=== PATIENT | female | born 1975 ===

== ENCOUNTER 2023-02-28 09:35 | Outpatient (REF) | payer OTHER, SELFPAY ==
--- NOTE | 2023-02-28 10:45 | CRLHL7_ITS ---
For Patients: As a result of the Cures Act, medical imaging exams and procedure reports are released immediately into your electronic medical record. You may view this report before your referring provider. If you have questions, please contact your health care provider. BILATERAL SCREENING MAMMOGRAM WITH COMPUTER-AIDED DETECTION AND TOMOSYNTHESIS TECHNIQUE: CC and MLO views were obtained. These mammographic images have been obtained using full-field digital technique. These mammographic images were interpreted with the benefit of computer-aided detection. Breast Tomosynthesis was used in this interpretation. COMPARISON FILM: 12/31/21, 12/19/20. FINDINGS: The breasts are heterogeneously dense, which may obscure small masses IMPRESSION: There is no radiographic evidence for malignancy. ASSESSMENT: BI-RADS Category 2: Benign RECOMMENDATION: Routine screening mammogram in 1 year. A lay language report of this examination will be provided to the patient. Alejandro Ashley M.D. Diagnostic Radiologist [email or web address] Transcribed: 5:06 p.[email or web address] [email or web address]/Dictated by: Alejandro Ashley MD @ 03/05/2023 10:09:00 AM (Electronically Signed)
== END 2023-02-28 09:36 | disposition home or self-care (01) ==
LOC: MAMMO 09:35
PROVIDERS: PCP Physician Assistant Medical; Visit Provider Physician Assistant Medical
DX: Z12.31 Encounter for screening mammogram for malignant neoplasm of breast (principal); R92.2 Inconclusive mammogram
CPT/HCPCS: 77063; 77067; T1013

== ENCOUNTER 2024-03-08 07:34 | Outpatient (CLI) | payer OTHER, SELFPAY ==
--- NOTE | 2024-03-08 07:45 | CRLHL7_ITS ---
For Patients: As a result of the Century Cures Act, medical imaging exams and procedure reports are released immediately into your electronic medical record. You may view this report before your referring provider. If you have questions, please contact your health care provider. BILATERAL SCREENING MAMMOGRAM WITH COMPUTER-AIDED DETECTION AND TOMOSYNTHESIS TECHNIQUE: CC and MLO views were obtained. These mammographic images have been obtained using full-field digital technique. These mammographic images were interpreted with the benefit of computer-aided detection. Breast Tomosynthesis was used in this interpretation. COMPARISON FILM: 02/28/23, 12/31/21, 12/19/20. FINDINGS: There are scattered areas of fibroglandular density. IMPRESSION: There is no radiographic evidence for malignancy. ASSESSMENT: BI-RADS Category 2: Benign RECOMMENDATION: Routine screening mammogram in 1 year. A lay language report of this examination will be provided to the patient. Martell Gibbs M.D. Diagnostic/Nuclear Medicine Radiologist [email or web address] PERRI/kalli SP/Dictated by: Martell Gibbs MD @ 03/10/2024 11:48:00 AM (Electronically Signed)
== END 2024-03-08 07:35 | disposition home or self-care (01) ==
LOC: MAMMO 07:35
PROVIDERS: Visit Provider Family Medicine
DX: Z12.31 Encounter for screening mammogram for malignant neoplasm of breast (principal)
CPT/HCPCS: 77063; 77067

== ENCOUNTER 2024-10-18 21:40 | Emergency (ER) | payer OTHER, SELFPAY ==
--- OUTSIDE RECORDS SUMMARY | 2024-09-02 19:00 | XMS_ITS | Continuity of Care Document ---
Author Organization [facility] Address [address] [address] [place] [address] Phone Care Team Providers Care Automotive Engineering Technician Name Role Phone Melquiades Brewster MD Unavailable Unavailable Procedures Procedure Date Colonoscopy Flex; W/remov Les- 25 Moderate Sedation, Initial 15 minutes Ju Advance Directives Directive Yes / No Effective Date File Name No Information Encounters Encounter Description Practice Location Reason(s) For Visit Diagnoses Date Provider Providers Copied on Encounter [facility], [address] [address], [place], [place], [id number], [place] tel:[phone] [facility] No Information [address] [place] [address], [id number], [place]. tel:[phone] Referring Provider: Melquiades Brewster MD, [address] [place] [address], [id number] . tel:[phone] [facility], [address] [address], [place], [place], [id number], [place] tel:[phone] No Information Unknown No Information Family History Family Member Type Diagnosis Age At Onset No Information Immunizations Vaccine Date Status Comments SARS-COV-2 (COVID-19) vaccin e, mRNA, spike protein, LNP, preservative free, julianne-sucrose, 30 mcg/0.3 mL dose administered Note: [facility] bi-direct ional interface ; Source: Other Registry SARS-COV-2 (COVID-19) vaccin e, mRNA, spike protein, LNP, bivalent, preservative free, 30 mcg/0.3 mL dose, julianne-sucrose formulation administered Note: [facility] bi-direct ional interface ; Source: Other Registry Afluria Qd administered Note: [facility] bi-directional interface ; Source: Other Registry Afluria Qd administered Note: [facility] bi-directional interface ; Source: Other Registry SARS-COV-2 (COVID-19) vaccin e, mRNA, spike protein, LNP, preservative free, 30 mcg/0.3mL dose administered Note: [facility] bi-direct ional interface ; Source: Other Registry SARS-COV-2 (COVID-19) vaccin e, mRNA, spike protein, LNP, preservative free, 30 mcg/0.3mL dose administered Note: [facility] bi-direct ional interface ; Source: Other Registry SARS-COV-2 (COVID-19) vaccin e, mRNA, spike protein, LNP, preservative free, 30 mcg/0.3mL dose administered Note: [facility] bi-direct ional interface ; Source: Other Registry Afluria Qd administered Note: [facility] bi-directional interface ; Source: Other Registry Afluria Qd administered Note: [facility] bi-directional interface ; Source: Other Registry Afluria Qd administered Note: [facility] bi-directional interface ; Source: Other Registry tetanus and diphtheria toxoi ds, adsorbed, preservative free, for adult use (5 Lf of tetanus toxoid and 2 Lf of diphtheria toxoid) administered Note: [facility] bi-direct ional interface ; Source: Other Registry Afluria Qd administered Note: [facility] bi-directional interface ; Source: Other Registry Afluria Qd administered Note: [facility] bi-directional interface ; Source: Other Registry Afluria Qd administered Note: [facility] bi-directional interface ; Source: Other Registry [place] Qd administered Note: [facility] bi-directional interface ; Source: Other Registry Influenza, split virus, trivalent, injectable, contains preservative administered Note: [facility] bi-direct ional interface ; Source: Other Registry Influenza, split virus, trivalent, injectable, preservative free administered Note: [facility] bi-direct ional interface ; Source: Other Registry Influenza, split virus, trivalent, injectable, contains preservative administered Note: [facility] bi-direct ional interface ; Source: Other Registry Influenza, split virus, trivalent, injectable, contains preservative administered Note: [facility] bi-direct ional interface ; Source: Other Registry tetanus toxoid, reduced diphtheria toxoid, and acellular pertussis vaccine, adsorbed administered Note: [facility] b i-directional interface ; Source: Other Registry Influenza, split virus, trivalent, injectable, contains preservative administered Note: [facility] bi-direct ional interface ; Source: Other Registry Influenza, split virus, trivalent, injectable, contains preservative administered Note: [facility] bi-direct ional interface ; Source: Other Registry Influenza, split virus, trivalent, injectable, contains preservative administered Note: [facility] bi-direct ional interface ; Source: Other Registry Payers Payer name Insurance type Covered democrat ID Farzad marie(jonatan) Jade [facility] CI [id number] Social History Type Description Quantity Date Captured Comments Sex Female Smoking Status No Information Chief Complaint And Reason For Visit No Information Reason For Referral Reason For Referral No Information History Of Present Illness Encounter Date Complaint History Of Prese nt Illness No Information Functional Status Date Functional Assessmen t No Information Instructions Date Instruction Additional Infor mation No Information Assessments Type Assessment Date No Information Patient Care Teams Name Effective Dates (start - stop) Status Members No Information
--- OUTSIDE RECORDS SUMMARY | 2024-09-02 19:00 | XMS_ITS | Continuity of Care Document ---
Author Organization [facility] Address [address] [address] [place] [address] Phone Care Team Providers Care Gis Specialist Name Role Phone Melquiades Brewster MD Unavailable Unavailable Procedures Procedure Date Colonoscopy Flex; W/remov Les- 25 Moderate Sedation, Initial 15 minutes Ju Advance Directives Directive Yes / No Effective Date File Name No Information Encounters Encounter Description Practice Location Reason(s) For Visit Diagnoses Date Provider Providers Copied on Encounter [facility], [address] [address], [place], [place], [id number], [place] tel:[phone] [facility] No Information [address] [place] [address], [id number], [place]. tel:[phone] Referring Provider: Melquiades Brewster MD, [address] [place] [address], [id number] . tel:[phone] [employer] [facility], [address] [address], [place], [place], [id number], [place] tel:[phone] No Information Unknown No Information Family History [...] Registry Payers Payer name Insurance type Covered green party ID Farzad marie(jonatan) Jade [facility] CI [id number] Social History Type Description Quantity [...]
--- OUTSIDE RECORDS SUMMARY | 2024-09-03 09:00 | XMS_ITS | Encounter Summary ---
Author Organization [facility] Address [address] [place] [address] Care Team Providers Care Staffing Operations Manager Name Role Phone [facility] Primary [facility] Provider Encounter Details Date Type Department Care Team (Late st Contact Info) Description 09/03/2024 9:00 AM CDT Office Visit [facility] [phone] Jazz Charles Social History Tobacco Use Types Packs/Day Years Used Date Smoking Tobacco: Never Smokeless Tobacco: Never Alcohol Use Standard Drinks/Week Comments Never 0 (1 standard drink = 0.6 oz pur e alcohol) Comments Unknown Sex and Gender Information Value Date Recorded Sex Assigned at Not on file Legal Sex Female 5:07 AM MEDIA INTERN Gender Identity Not on file Sexual Orientation Not on file documented as of this encounter Plan of Treatment Not on file documented as of this encounter Visit Diagnoses Not on filedocumented in this encounter Care Teams Staffing Operations Manager Relationship Specialty Start Date End Date [facility] [address] [place] [address] PCP - General 09/03/24 documented as of this encounter
--- OUTSIDE RECORDS SUMMARY | 2024-09-03 09:06 | XMS_ITS | Encounter Summary ---
Author Organization [place] Address [facility] [place] [address] Care Team Providers Care Alterations Workroom Clerk Name Role Phone [facility] Primary [facility] Provider Encounter Details Date Type Department Care Team (Latest Contact Info) Description 09/03/2024 9:06 AM CDT - 09/03/2024 12:10 PM CDT Hospital Encounter [facility] [place] [address] [place] [address] Melquiades Donohue MD [facility] GASTRO[facility] [address] [place] [address] [place] [address] Discharge Disposition: Home or Self Care Social History Tobacco Use Types Packs/Day Years Used Date Smoking Tobacco: Never Smokeless Tobacco: Never Tobacco Cessation:Counseling Given: Not Answered Alcohol Use Standard Drinks/Week Comments Never 0 (1 standard drink = 0.6 oz pur e alcohol) Comments Unknown Sex and Gender Information Value Date Recorded Sex Assigned at Not on file 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 Gender Identity Not on file Sexual Orientation Not on file documented as of this encounter Last Filed Vital Signs Vital Sign Reading Time Taken Comments Blood Pressure 121/70 09/03/2024 12:00 PM CDT Pulse 84 09/03/2024 12:00 PM CDT Temperature - - Respiratory Rate 16 09/03/2024 12:00 PM CDT Oxygen Saturation 99% 09/03/2024 12:00 PM CDT Inhaled Oxygen Concentration - - Weight 63.5 kg (140 lb) 09/03/2024 10:27 AM CDT Height 139.7 cm (4' 7) 09/03/2024 10:27 AM CDT Body Mass Index 32.54 09/03/2024 10:27 AM CDT documented in this encounter Discharge Instructions * Discharge Instructions* Cristal Brizuela RN - 09/03/2024 11:18 AM CDT The patient has received a copy of the Provation report the doctor has written and discharge instructions have been discussed with the patient and responsible adult. All questions were addressed and answered prior to patient discharge. * Attachments The following attachments cannot be sent through Care Everywhere. * Colon Polyps (Algerian) documented in this encounter Medications at Time of Discharge tamoxifen (NOLVADEX) 10 MG tablet Take 10 mg by mouth daily. documented as of this encounter Consult Notes * Melquiades Donohue MD - 09/03/2024 9:16 AM CDT Pre-Endoscopy History and Physical Salome Garcia Date of : 1975 Age: [age] year old Date of Procedure: 09/03/2024 [facility] Type of Endoscopy: colonoscopy Reason for Procedure: colon cancer screening Type of Anesthesia Anticipated: Moderate (conscious) sedation HPI: Salome is a 49 year old female who will be undergoing the above procedure. A history and physical has been performed. The patient's medications and allergies have been reviewed. The risks and benefits of the procedure and the sedation options and risks were discussed with the patient. All questions were answered and informed consent was obtained. She denies a personal or family history of anesthesia complications or bleeding disorders. Not on File Current Facility-Administered Medications Medication Dose Route Frequency Provider Last Rate Last Admin atropine injection 1 mg 1 mg Intravenous Once PRN Melquiades Donohue MD benzocaine 20% (HURRICAINE/TOPEX) 20 % spray 0.5 mL 1 spray Mouth/Throat Once PRN Melquiades Donohue MD diphenhydrAMINE (BENADRYL) injection 25-50 mg 25-50 mg Intravenous Once PRN Melquiades Donohue MD EPINEPHrine PF (ADRENALIN) injection 0.1 mg 0.1 mg Submucosal Once PRN Melquiades Donohue MD fentaNYL (PF) (SUBLIMAZE) injection 25-100 mcg 25-100 mcg Intravenous Q5 Min PRN Melquiades Donohue MD flumazenil (ROMAZICON) injection 0.2 mg 0.2 mg Intravenous q1 min prn Melquiades Donohue MD glucagon injection 0.5 mg 0.5 mg Intravenous Once PRN Melquiades Donohue MD midazolam (VERSED) injection 0.5-2 mg 0.5-2 mg Intravenous Q4 Min PRN Melquiades Donohue MD naloxone (NARCAN) injection 0.2 mg 0.2 mg Intravenous Q2 Min PRN Melquiades Donohue MD Or naloxone (NARCAN) injection 0.4 mg 0.4 mg Intravenous Q2 Min PRN Melquiades Donohue MD Or naloxone (NARCAN) injection 0.2 mg 0.2 mg Intramuscular Q2 Min PRN Melquiades Donohue MD Or naloxone (NARCAN) injection 0.4 mg 0.4 mg Intramuscular Q2 Min PRN Melquiades Donohue MD simethicone (MYLICON) suspension 133 mg 133 mg Oral Once PRN Melquiades Donohue MD sodium chloride (PF) 0.9% PF flush 3 mL 3 mL Intravenous q1 min prn Melquiades Donohue MD sodium chloride 0.9% BOLUS 500 mL 500 mL Intravenous Once PRN Melquiades Donohue MD There is no problem list on file for this patient. No past medical history on file. No past surgical history on file. Social History Tobacco Use Smoking status: Not on file Smokeless tobacco: Not on file Substance Use Topics Alcohol use: Not on file No family history on file. REVIEW OF SYSTEMS: 5 point ROS negative except as noted above in HPI, including Gen., Resp., CV, GI & system review. PHYSICAL EXAM: There were no vitals taken for this visit. There is no height or weight on file to calculate BMI. GENERAL APPEARANCE: healthy MENTAL STATUS: alert AIRWAY EXAM: Mallampatti Class I (visualization of the soft palate, fauces, uvula, anterior and posterior pillars) RESP: lungs clear to auscultation - no rales, rhonchi or wheezes CV: regular rates and rhythm DIAGNOSTICS: Not indicated IMPRESSION ASA Class 2 - Mild systemic disease PLAN: Colonoscopy The above has been forwarded to the consulting provider. Signed Electronically by: Melquiades Donohue MD September 03, 2024 documented in this encounter Plan of Treatment Not on file documented as of this encounter Procedures Procedure Name Priority Date/Time Associated Diagnosis Comments SURGICAL PATHOLOGY EXAM Routine 09/03/2024 10:56 AM CDT COLONOSCOPY Routine 09/03/2024 10:38 AM CDT COLONOSCOPY W SNARE REMOVAL TUMOR/POLYP/LESION 09/03/2024 10:33 AM CDT Constipation Abdominal pain Special Needs Free Colonoscopy Screening Patient documented in this encounter Results * Surgical Pathology Exam (09/03/2024 10:56 AM CDT) Case Report Surgical Pathology Report Case: [id number] Authorizing Provider: Melquiades Donohue MD Collected: 09/03/2024 10:56 AM Ordering Location: [facility] Received: 09/03/2024 11:19 AM [facility] [place] Pathologist: Dang Wang MD Specimen: Large Intestine, Colon, Cecum, Cecum polyps x3 09/06/2024 9:21 AM CDT LABORATORY Final Diagnosis Large intestine, cecum, polypectomy x 3: - Tubular adenomas (3); no evidence of high-grade dysplasia or malignancy 09/06/2024 9:21 AM CDT LABORATORY at 0921 CDT Clinical Information Procedure: Colonoscopy, Screening with polypectomies by cold exacto snare Pre-op Diagnosis: Constipation [K59.00] Abdominal pain [R10.9] Post-op Diagnosis: K59.00 - Constipation [ICD-10-CM] R10.9 - Abdominal pain [ICD-10-CM] 09/06/2024 9:21 AM CDT LABORATORY Gross Description A(1). Large Intestine, Colon, Cecum, Cecum polyps x3: The specimen is received in formalin, labeled with the patient's name, medical record number and other identifying information and designated c ecum polyps x 3 . It consists of multiple campbell soft tissue fragments ranging from 0.1-0.3 cm. Entirely submitted in one cassette. (NAHID Bell) 09/03/2024 11:23 AM 09/06/2024 9:21 AM CDT LABORATORY Microscopic Description A formal microscopic examination has been performed 09/06/2024 9:21 AM CDT LABORATORY Performing Labs The technical component of this testing was completed at [facility]. Stain controls for all stains resulted within this report have been reviewed and show appropriate reactivity. 09/06/2024 9:21 AM CDT LABORATORY Case Images 09/06/2024 9:21 AM CDT LABORATORY Polyp CECUM STRUCTURE / Unknown 09/03/2024 10:56 AM CDT 09/03/2024 11:19 AM CDT us Melquiades Donohue MD LAB - JAVIER AP Final Resul t LABORATORY [facility] [address] 1st [address], [address] [place] [address], [facility] [[email or web address]] [phone] LABORATORY [facility] [address] [facility] (1st floor, no room number) [place] [address], [facility] [[email or web address]] * COLONOSCOPY (09/03/2024 10:38 AM CDT) COLONOSCOPY [facility] Patient Name: Salome Cole Jose Procedure Date: 09/03/2024 10:38 AM Date of : 1975 Admit Type: Outpatient Age: 49 Gender: Female Attending MD: MELQUIADES DONOHUE MD, Total Sedation Time: Minutes of continuous bedside 1:1: 19 minutes Instrument Name: 256 - Pediatric Colonoscope Procedure: Colonoscopy Indications: Screening for colorectal malignant neoplasm Providers: MELQUIADES DONOHUE MD (Doctor) Referring MD: Medicines: Midazolam 2 mg IV, Fentanyl 100 micrograms IV Complications: No immediate complications. Procedure: Pre-Anesthesia Assessment: - Prior to the procedure, a History and Physical was performed, and patient medications and allergies were reviewed. The patient is competent. The risks and benefits of the procedure and the sedation options and risks were discussed with the patient. All questions were answered and informed consent was obtained. Patient identification and proposed procedure were verified by the physician in the pre-procedure area. Mental Status Examination: alert and oriented. Airway Examination: normal oropharyngeal airway and neck mobility. Respiratory Examination: clear to auscultation. CV Examination: normal. Prophylactic Antibiotics: The patient does not require prophylactic antibiotics. Prior Anticoagulants: The patient has taken no anticoagulant or antiplatelet agents. ASA Grade Assessment: II - A patient with mild systemic disease. After reviewing the risks and benefits, the patient was deemed in satisfactory condition to undergo the procedure. The anesthesia plan was to use moderate sedation / analgesia (conscious sedation). Immediately prior to administration of medications, the patient was re-assessed for adequacy to receive sedatives. The heart rate, respiratory rate, oxygen saturations, blood pressure, adequacy of pulmonary ventilation, and response to care were monitored throughout the procedure. The physical status of the patient was re-assessed after the procedure. After obtaining informed consent, the colonoscope was passed under direct vision. Throughout the procedure, the patient's blood pressure, pulse, and oxygen saturations were monitored continuously. The Olympus Pediatric Colonoscope Model # [id number], Censitrac # [id number] was introduced through the anus and advanced to the terminal ileum. The colonoscopy was performed without difficulty. The patient tolerated the procedure well. The quality of the bowel preparation was good. The terminal ileum, ileocecal valve, appendiceal orifice, and rectum were photographed. Findings: Three semi-pedunculated polyps were found in the cecum. The polyps were 3 to 8 mm in size. These polyps were removed with a cold snare. Resection and retrieval were complete. The terminal ileum appeared normal. The exam was otherwise without abnormality. Impression: - Three 3 to 8 mm polyps in the cecum, removed with a cold snare. Resected and retrieved. - The examined portion of the ileum was normal. - The examination was otherwise normal. Recommendation: - Await pathology results. - Repeat colonoscopy for surveillance based on pathology results. Procedure Code(s): --- Professional --- 68854, Colonoscopy, flexible; with removal of tumor(s), polyp(s), or other lesion(s) by snare technique Diagnosis Code(s): --- Professional --- D12.0, Benign neoplasm of cecum Z12.11, Encounter for screening for malignant neoplasm of colon CPT copyright 2021 [employer]. All rights reserved. The codes documented in this report are preliminary and upon mingle operator review may be revised to meet current compliance requirements. Melquiades Donohue M.D. ___ MELQUIADES DONOHUE MD 09/03/2024 11:09:51 AM Number of Addenda: 0 Note Initiated On: 09/03/2024 10:38 AM Procedure Date: 09/03/2024 10:38:49 AM Scope Withdrawal Time: 0 hours 11 minutes 12 seconds Total Procedure Duration: 0 hours 17 minutes 17 seconds Estimated Blood Loss: Scope In: 10:47:13 AM Scope Out: 11:04:30 AM RADIOLOGY RESULTS 09/03/2024 10:3 8 AM CDT us Melquiades Donohue MD PROCEDURES Final Resul t RADIOLOGY RESULTS documented in this encounter Visit Diagnoses Not on filedocumented in this encounter Administered Medications Inactive Administered Medications - up to 3 most recent administrations Medication Order MAR Action Action Date Dose Rate Site atropine injection 1 mg 1 mg, Intravenous, ONCE PRN, other, Bradycardia, Starting on Fri09/03/24 at 0915, For 1 dose, Intra-procedure benzocaine 20% (HURRICAINE/TOPEX) 20 % spray 0.5 mL 0.5 mL (1 spray), Mouth/Throat, ONCE PRN, sore throat, Starting on Fri09/03/24 at 0915, For 1 dose, [place] throat with 1 spray 5 minutes prior to procedure., Intra-procedure diphenhydrAMINE (BENADRYL) injection 25-50 mg 25-50 mg, Intravenous, ONCE PRN, other, for sedations, dose per provider direction., Administer over 1-2 Minutes, Starting on Fri09/03/24 at 0915, For 1 dose, Intra-procedure EPINEPHrine PF (ADRENALIN) injection 0.1 mg 0.1 mg, Submucosal, ONCE PRN, bleeding, Starting on Fri09/03/24 at 0915, For 1 dose, RN to dilute 1 mL (1 mg) of EPINEPHrine with 9 mL of 0.9% sodium chloride to equal a 0.1 mg/mL concentration. Inject 1 mL (0.1 mg) into submucosa via a sclerotherapy injection needle. Not for direct undiluted intravenous injection. (1 mg/mL = 1:1,000 concentration), Intra-procedure fentaNYL (PF) (SUBLIMAZE) injection 25-100 mcg 25-100 mcg, Intravenous, EVERY 5 MIN PRN, severe pain, If inadequate response may repeat every 3 min PRN severe pain; when verbally requested by provider., Starting on Fri09/03/24 at 0915, Doses can be exceeded under direct oversight of patient by physician., Intra-procedure $Given 09/03/2024 10:45 AM CDT 100 mcg flumazenil (ROMAZICON) injection 0.2 mg 0.2 mg, Intravenous, EVERY 1 MIN PRN, benzodiazepine reversal, If inadequate response after 45 seconds, may repeat 0.2 mg IV every 1 minute PRN over sedation., Administer over 1 Minutes, Starting on Fri09/03/24 at 0915, Give over 15 seconds. Maximum total dose of 1 mg. Continue monitoring until discharge criteria met for a minimum of 2 hours. Use with caution in patients on benzodiazepine therapy., Intra-procedure flumazenil (ROMAZICON) injection 0.2 mg 0.2 mg, Intravenous, EVERY 1 MIN PRN, benzodiazepine reversal, over sedation, Administer over 1 Minutes, Starting on Fri09/03/24 at 1117, For 12 hours, Give over 15 seconds. If inadequate response after 45 seconds, may repeat up to a MAX total dose of 1 mg. Continue monitoring until discharge criteria are met for a minimum of 2 hours Use with caution in patients on benzodiazepine therapy. glucagon injection 0.5 mg 0.5 mg, Intravenous, ONCE PRN, other, gi motility, Starting on Fri09/03/24 at 0915, For 1 dose, Intra-procedure lidocaine (LMX4) cream Topical, EVERY 1 HOUR PRN, pain, with VAD insertion, Starting on Fri09/03/24 at 1023, Apply at least 30 minutes prior to VAD insertion in divided doses as needed for size of site for insertion. MAX Dose: 2.5 g ( of 5 g tube) Do NOT give if patient has a history of allergy to any local anesthetic or any alison product. Do NOT use both lidocaine intradermal/subcutaneous injection and the lidocaine cream on the same site., Pre-procedure lidocaine 1 % 0.1-1 mL 0.1-1 mL, Other, EVERY 1 HOUR PRN, mild pain with VAD insertion, Starting on Fri09/03/24 at 1023, MAX dose 1 mL subcutaneous OR intradermal along the side of the vein in divided doses as needed for VAD insertion. Do NOT give if patient has a history of allergy to any local anesthetic or any alison product. Do NOT use both lidocaine intradermal/subcutaneous injection and the lidocaine cream on the same site., Pre-procedure midazolam (VERSED) injection 0.5-2 mg 0.5-2 mg, Intravenous, EVERY 4 MIN PRN, sedation, If inadequate response may repeat every 4 minutes PRN sedation until desired response; when verbally requested by provider., Starting on Fri09/03/24 at 0915, Doses can be exceeded under direct oversight of patient by physician. This drug may cause significant respiratory depression. Monitor respiratory status and vital signs carefully for 1 hour after each dose., Intra-procedure $Given 09/03/2024 10:45 AM CDT 2 mg naloxone (NARCAN) injection 0.2 mg 0.2 mg, Intravenous, EVERY 2 MIN PRN, opioid reversal, Starting on Fri09/03/24 at 0915, Administer intravenous route when available and notify provider when administered. For unintended sedation or respiratory depression if all of the below criteria are met: ~ respiratory rate LESS than or EQUAL to 8. ~SaO2 less than 92% and or/end-tidal CO2 is greater than 50. ~ the patient is receiving an opioid, has unintended sedations assessed as RASS (-3), and is currently not on mechanical ventilation. RASS scale moderate (-3) is movement or eye opening to voice but no eye contact. Patient Monitoring Once the patient has demonstrated a response to the naloxone, continue to monitor respiratory rate, depth, oxygen saturation and end-tidal CO2 (if available) every 15 minutes x 2, then every 30 minutes x 2, then every 1 hour x 1 after each naloxone dose. Consider transfer to ICU if patient respiratory parameters have not improved after 4 naloxone doses., Intra-procedure naloxone (NARCAN) injection 0.2 mg 0.2 mg, Intramuscular, EVERY 2 MIN PRN, opioid reversal, Starting on Fri09/03/24 at 0915, Administer intramuscular if an intravenous route is not available and notify provider when administered. For unintended sedation or respiratory depression if all of the below criteria are met: ~ respiratory rate LESS than or EQUAL to 8. ~SaO2 less than 92% and or/end-tidal CO2 is greater than 50. ~ the patient is receiving an opioid, has unintended sedations assessed as RASS (-3), and is currently not on mechanical ventilation. RASS scale moderate (-3) is movement or eye opening to voice but no eye contact. Patient Monitoring Once the patient has demonstrated a response to the naloxone, continue to monitor respiratory rate, depth, oxygen saturation and end-tidal CO2 (if available) every 15 minutes x 2, then every 30 minutes x 2, then every 1 hour x 1 after each naloxone dose. Consider transfer to ICU if patient respiratory parameters have not improved after 4 naloxone doses., Intra-procedure naloxone (NARCAN) injection 0.2 mg 0.2 mg, Intravenous, EVERY 2 MIN PRN, opioid reversal, Starting on Fri09/03/24 at 1117, Administer intravenous route when available and notify provider when administered. For unintended sedation or respiratory depression if all of the below criteria are met: ~ respiratory rate LESS than or EQUAL to 8. ~SaO2 less than 92% and or/end-tidal CO2 is greater than 50. ~ the patient is receiving an opioid, has unintended sedations assessed as RASS (-3), and is currently not on mechanical ventilation. RASS scale moderate (-3) is movement or eye opening to voice but no eye contact. Patient Monitoring Once the patient has demonstrated a response to the naloxone, continue to monitor respiratory rate, depth, oxygen saturation and end-tidal CO2 (if available) every 15 minutes x 2, then every 30 minutes x 2, then every 1 hour x 1 after each naloxone dose. Consider transfer to ICU if patient respiratory parameters have not improved after 4 naloxone doses. naloxone (NARCAN) injection 0.2 mg 0.2 mg, Intramuscular, EVERY 2 MIN PRN, opioid reversal, Starting on Fri09/03/24 at 1117, Administer intramuscular if an intravenous route is not available and notify provider when administered. For unintended sedation or respiratory depression if all of the below criteria are met: ~ respiratory rate LESS than or EQUAL to 8. ~SaO2 less than 92% and or/end-tidal CO2 is greater than 50. ~ the patient is receiving an opioid, has unintended sedations assessed as RASS (-3), and is currently not on mechanical ventilation. RASS scale moderate (-3) is movement or eye opening to voice but no eye contact. Patient Monitoring Once the patient has demonstrated a response to the naloxone, continue to monitor respiratory rate, depth, oxygen saturation and end-tidal CO2 (if available) every 15 minutes x 2, then every 30 minutes x 2, then every 1 hour x 1 after each naloxone dose. Consider transfer to ICU if patient respiratory parameters have not improved after 4 naloxone doses. naloxone (NARCAN) injection 0.4 mg 0.4 mg, Intravenous, EVERY 2 MIN PRN, opioid reversal, Starting on Fri09/03/24 at 0915, Administer intravenous route when available and notify provider when administered. For unintended sedation or respiratory depression if all of the below criteria are met: ~ respiratory rate LESS than or EQUAL to 8. ~ SaO2 less than 92% and or/end-tidal CO2 is greater than 50. ~ the patient is receiving an opioid, has unintended sedation assessed as RASS (-4) or (-5) and patient is currently not on mechanical ventilation. RASS scale (-4) is deep sedation with no response to voice but movement or eye opening to physical stimulation. RASS scale (-5) is unarousable. Patient Monitoring Once the patient has demonstrated a response to the naloxone, continue to monitor respiratory rate, depth, oxygen saturation and end-tidal CO2 (if available) every 15 minutes x 2, then every 30 minutes x 2, then every 1 hour x 1 after each naloxone dose. Consider transfer to ICU if patient respiratory parameters have not improved after 4 naloxone doses., Intra-procedure naloxone (NARCAN) injection 0.4 mg 0.4 mg, Intramuscular, EVERY 2 MIN PRN, opioid reversal, Starting on Fri09/03/24 at 0915, Administer intramuscular if an intravenous route is not available and notify provider when administered. For unintended sedation or respiratory depression if all of the below criteria are met: ~ respiratory rate LESS than or EQUAL to 8. ~ SaO2 less than 92% and or/end-tidal CO2 is greater than 50. ~ the patient is receiving an opioid, has unintended sedation assessed as RASS (-4) or (-5) and patient is currently not on mechanical ventilation. RASS scale (-4) is deep sedation with no response to voice but movement or eye opening to physical stimulation. RASS scale (-5) is unarousable. Patient Monitoring Once the patient has demonstrated a response to the naloxone, continue to monitor respiratory rate, depth, oxygen saturation and end-tidal CO2 (if available) every 15 minutes x 2, then every 30 minutes x 2, then every 1 hour x 1 after each naloxone dose. Consider transfer to ICU if patient respiratory parameters have not improved after 4 naloxone doses., Intra-procedure naloxone (NARCAN) injection 0.4 mg 0.4 mg, Intravenous, EVERY 2 MIN PRN, opioid reversal, Starting on Fri09/03/24 at 1117, Administer intravenous route when available and notify provider when administered. For unintended sedation or respiratory depression if all of the below criteria are met: ~ respiratory rate LESS than or EQUAL to 8. ~ SaO2 less than 92% and or/end-tidal CO2 is greater than 50. ~ the patient is receiving an opioid, has unintended sedation assessed as RASS (-4) or (-5) and patient is currently not on mechanical ventilation. RASS scale (-4) is deep sedation with no response to voice but movement or eye opening to physical stimulation. RASS scale (-5) is unarousable. Patient Monitoring Once the patient has demonstrated a response to the naloxone, continue to monitor respiratory rate, depth, oxygen saturation and end-tidal CO2 (if available) every 15 minutes x 2, then every 30 minutes x 2, then every 1 hour x 1 after each naloxone dose. Consider transfer to ICU if patient respiratory parameters have not improved after 4 naloxone doses. naloxone (NARCAN) injection 0.4 mg 0.4 mg, Intramuscular, EVERY 2 MIN PRN, opioid reversal, Starting on Fri09/03/24 at 1117, Administer intramuscular if an intravenous route is not available and notify provider when administered. For unintended sedation or respiratory depression if all of the below criteria are met: ~ respiratory rate LESS than or EQUAL to 8. ~ SaO2 less than 92% and or/end-tidal CO2 is greater than 50. ~ the patient is receiving an opioid, has unintended sedation assessed as RASS (-4) or (-5) and patient is currently not on mechanical ventilation. RASS scale (-4) is deep sedation with no response to voice but movement or eye opening to physical stimulation. RASS scale (-5) is unarousable. Patient Monitoring Once the patient has demonstrated a response to the naloxone, continue to monitor respiratory rate, depth, oxygen saturation and end-tidal CO2 (if available) every 15 minutes x 2, then every 30 minutes x 2, then every 1 hour x 1 after each naloxone dose. Consider transfer to ICU if patient respiratory parameters have not improved after 4 naloxone doses. ondansetron (ZOFRAN ODT) ODT tab 4 mg 4 mg, Oral, EVERY 6 HOURS PRN, nausea, vomiting, Starting on Fri09/03/24 at 1117, This is Step 1 of nausea and vomiting management. If nausea not resolved in 15 minutes, go to Step 2 prochlorperazine (COMPAZINE). Do not push through foil backing. Peel back foil and gently remove. Place on tongue immediately. Administration with liquid unnecessary With dry hands, peel back foil backing and gently remove tablet. Do not push oral disintegrating tablet through foil backing. Administer immediately on tongue and oral disintegrating tablet dissolves in seconds, then swallow with saliva. Liquid not required. ondansetron (ZOFRAN) injection 4 mg 4 mg, Intravenous, ONCE PRN, nausea, vomiting, Administer over 2-5 Minutes, Starting on Fri09/03/24 at 1023, For 1 dose, Give in ENDO pre procedure prep area., Pre-procedure ondansetron (ZOFRAN) injection 4 mg 4 mg, Intravenous, EVERY 6 HOURS PRN, nausea, vomiting, Administer over 2-5 Minutes, Starting on Fri09/03/24 at 1117, This is Step 1 of nausea and vomiting management. If nausea not resolved in 15 minutes, go to Step 2 prochlorperazine (COMPAZINE). prochlorperazine (COMPAZINE) injection 10 mg 10 mg, Intravenous, EVERY 6 HOURS PRN, nausea, vomiting, Administer over 1-2 Minutes, Starting on Fri09/03/24 at 1117, This is Step 2 of nausea and vomiting management. If nausea not resolved in 15-30 minutes, Notify provider. prochlorperazine (COMPAZINE) tablet 10 mg 10 mg, Oral, EVERY 6 HOURS PRN, nausea, vomiting, Starting on Fri09/03/24 at 1117, This is Step 2 of nausea and vomiting management. If nausea not resolved in 15-30 minutes, Notify provider. simethicone (MYLICON) suspension 133 mg 133 mg, Oral, ONCE PRN, other, gas bubbles, Starting on Fri09/03/24 at 0915, For 1 dose, Give via endoscope, Intra-procedure sodium chloride (PF) 0.9% PF flush 3 mL 3 mL, Intracatheter, EVERY 8 HOURS SCHEDULED, First dose on Fri09/03/24 at 1400, to lock peripheral IV dormant line, Pre-procedure sodium chloride (PF) 0.9% PF flush 3 mL 3 mL, Intracatheter, EVERY 1 MIN PRN, line flush, other, to ensure patency or to lock dormant line, Starting on Fri09/03/24 at 1023, Pre-procedure sodium chloride (PF) 0.9% PF flush 3 mL 3 mL, Intravenous, EVERY 1 MIN PRN, line flush, Starting on Fri09/03/24 at 0915, Indications: for Peripheral IV flush post IV meds, Intra-procedureIndications:for Peripheral IV flush post IV meds $Given 09/03/2024 10:45 AM CDT 3 mLs sodium chloride 0.9% BOLUS 500 mL Intravenous, 500 mL, ONCE PRN, at 500 mL/hr, Administer over 1 Hours, other, hypotension, Starting on Fri09/03/24 at 0915, For 1 dose, Intra-procedure documented in this encounter Active and Recently Administered Medications Times are shown in CDT. Scheduled Medication Order 09/01/2024 09/02/2024 09/03/2024 sodium chloride (PF) 0.9% PF flush 3 mL 3 mL, Intracatheter, EVERY 8 HOURS SCHEDULED, First dose on Fri09/03/24 at 1400, to lock peripheral IV dormant line, Pre-procedure 1400 (Canceled Entry - Provider: Orders Generic Provider - Comment: Automatically canceled at discontinue of medication order) PRN Medication Order 09/01/2024 09/02/2024 09/03/2024 atropine injection 1 mg 1 mg, Intravenous, ONCE PRN, other, Bradycardia, Starting on Fri09/03/24 at 0915, For 1 dose, Intra-procedure benzocaine 20% (HURRICAINE/TOPEX) 20 % spray 0.5 mL 0.5 mL (1 spray), Mouth/Throat, ONCE PRN, sore throat, Starting on Fri09/03/24 at 0915, For 1 dose, [place] throat with 1 spray 5 minutes prior to procedure., Intra-procedure diphenhydrAMINE (BENADRYL) injection 25-50 mg 25-50 mg, Intravenous, ONCE PRN, other, for sedations, dose per provider direction., Administer over 1-2 Minutes, Starting on Fri09/03/24 at 0915, For 1 dose, Intra-procedure EPINEPHrine PF (ADRENALIN) injection 0.1 mg 0.1 mg, Submucosal, ONCE PRN, bleeding, Starting on Fri09/03/24 at 0915, For 1 dose, RN to dilute 1 mL (1 mg) of EPINEPHrine with 9 mL of 0.9% sodium chloride to equal a 0.1 mg/mL concentration. Inject 1 mL (0.1 mg) into submucosa via a sclerotherapy injection needle. Not for direct undiluted intravenous injection. (1 mg/mL = 1:1,000 concentration), Intra-procedure fentaNYL (PF) (SUBLIMAZE) injection 25-100 mcg 25-100 mcg, Intravenous, EVERY 5 MIN PRN, severe pain, If inadequate response may repeat every 3 min PRN severe pain; when verbally requested by provider., Starting on Fri09/03/24 at 0915, Doses can be exceeded under direct oversight of patient by physician., Intra-procedure 1045 ($Given - Provi hailee: Amelie Mancia RN) flumazenil (ROMAZICON) injection 0.2 mg 0.2 mg, Intravenous, EVERY 1 MIN PRN, benzodiazepine reversal, If inadequate response after 45 seconds, may repeat 0.2 mg IV every 1 minute PRN over sedation., Administer over 1 Minutes, Starting on Fri09/03/24 at 0915, Give over 15 seconds. Maximum total dose of 1 mg. Continue monitoring until discharge criteria met for a minimum of 2 hours. Use with caution in patients on benzodiazepine therapy., Intra-procedure flumazenil (ROMAZICON) injection 0.2 mg 0.2 mg, Intravenous, EVERY 1 MIN PRN, benzodiazepine reversal, over sedation, Administer over 1 Minutes, Starting on Fri09/03/24 at 1117, For 12 hours, Give over 15 seconds. If inadequate response after 45 seconds, may repeat up to a MAX total dose of 1 mg. Continue monitoring until discharge criteria are met for a minimum of 2 hours Use with caution in patients on benzodiazepine therapy. glucagon injection 0.5 mg 0.5 mg, Intravenous, ONCE PRN, other, gi motility, Starting on Fri09/03/24 at 0915, For 1 dose, Intra-procedure lidocaine (LMX4) cream Topical, EVERY 1 HOUR PRN, pain, with VAD insertion, Starting on Fri09/03/24 at 1023, Apply at least 30 minutes prior to VAD insertion in divided doses as needed for size of site for insertion. MAX Dose: 2.5 g ( of 5 g tube) Do NOT give if patient has a history of allergy to any local anesthetic or any alison product. Do NOT use both lidocaine intradermal/subcutaneous injection and the lidocaine cream on the same site., Pre-procedure lidocaine 1 % 0.1-1 mL 0.1-1 mL, Other, EVERY 1 HOUR PRN, mild pain with VAD insertion, Starting on Fri09/03/24 at 1023, MAX dose 1 mL subcutaneous OR intradermal along the side of the vein in divided doses as needed for VAD insertion. Do NOT give if patient has a history of allergy to any local anesthetic or any alison product. Do NOT use both lidocaine intradermal/subcutaneous injection and the lidocaine cream on the same site., Pre-procedure midazolam (VERSED) injection 0.5-2 mg 0.5-2 mg, Intravenous, EVERY 4 MIN PRN, sedation, If inadequate response may repeat every 4 minutes PRN sedation until desired response; when verbally requested by provider., Starting on Fri09/03/24 at 0915, Doses can be exceeded under direct oversight of patient by physician. This drug may cause significant respiratory depression. Monitor respiratory status and vital signs carefully for 1 hour after each dose., Intra-procedure 1045 ($Given - Provi hailee: Amelie Mancia RN) naloxone (NARCAN) injection 0.2 mg(Linked Group 1) 0.2 mg, Intravenous, EVERY 2 MIN PRN, opioid reversal, Starting on Fri09/03/24 at 0915, Administer intravenous route when available and notify provider when administered. For unintended sedation or respiratory depression if all of the below criteria are met: ~ respiratory rate LESS than or EQUAL to 8. ~SaO2 less than 92% and or/end-tidal CO2 is greater than 50. ~ the patient is receiving an opioid, has unintended sedations assessed as RASS (-3), and is currently not on mechanical ventilation. RASS scale moderate (-3) is movement or eye opening to voice but no eye contact. Patient Monitoring Once the patient has demonstrated a response to the naloxone, continue to monitor respiratory rate, depth, oxygen saturation and end-tidal CO2 (if available) every 15 minutes x 2, then every 30 minutes x 2, then every 1 hour x 1 after each naloxone dose. Consider transfer to ICU if patient respiratory parameters have not improved after 4 naloxone doses., Intra-procedure naloxone (NARCAN) injection 0.2 mg(Linked Group 1) 0.2 mg, Intramuscular, EVERY 2 MIN PRN, opioid reversal, Starting on Fri09/03/24 at 0915, Administer intramuscular if an intravenous route is not available and notify provider when administered. For unintended sedation or respiratory depression if all of the below criteria are met: ~ respiratory rate LESS than or EQUAL to 8. ~SaO2 less than 92% and or/end-tidal CO2 is greater than 50. ~ the patient is receiving an opioid, has unintended sedations assessed as RASS (-3), and is currently not on mechanical ventilation. RASS scale moderate (-3) is movement or eye opening to voice but no eye contact. Patient Monitoring Once the patient has demonstrated a response to the naloxone, continue to monitor respiratory rate, depth, oxygen saturation and end-tidal CO2 (if available) every 15 minutes x 2, then every 30 minutes x 2, then every 1 hour x 1 after each naloxone dose. Consider transfer to ICU if patient respiratory parameters have not improved after 4 naloxone doses., Intra-procedure naloxone (NARCAN) injection 0.2 mg 0.2 mg, Intravenous, EVERY 2 MIN PRN, opioid reversal, Starting on Fri09/03/24 at 1117, Administer intravenous route when available and notify provider when administered. For unintended sedation or respiratory depression if all of the below criteria are met: ~ respiratory rate LESS than or EQUAL to 8. ~SaO2 less than 92% and or/end-tidal CO2 is greater than 50. ~ the patient is receiving an opioid, has unintended sedations assessed as RASS (-3), and is currently not on mechanical ventilation. RASS scale moderate (-3) is movement or eye opening to voice but no eye contact. Patient Monitoring Once the patient has demonstrated a response to the naloxone, continue to monitor respiratory rate, depth, oxygen saturation and end-tidal CO2 (if available) every 15 minutes x 2, then every 30 minutes x 2, then every 1 hour x 1 after each naloxone dose. Consider transfer to ICU if patient respiratory parameters have not improved after 4 naloxone doses. naloxone (NARCAN) injection 0.2 mg 0.2 mg, Intramuscular, EVERY 2 MIN PRN, opioid reversal, Starting on Fri09/03/24 at 1117, Administer intramuscular if an intravenous route is not available and notify provider when administered. For unintended sedation or respiratory depression if all of the below criteria are met: ~ respiratory rate LESS than or EQUAL to 8. ~SaO2 less than 92% and or/end-tidal CO2 is greater than 50. ~ the patient is receiving an opioid, has unintended sedations assessed as RASS (-3), and is currently not on mechanical ventilation. RASS scale moderate (-3) is movement or eye opening to voice but no eye contact. Patient Monitoring Once the patient has demonstrated a response to the naloxone, continue to monitor respiratory rate, depth, oxygen saturation and end-tidal CO2 (if available) every 15 minutes x 2, then every 30 minutes x 2, then every 1 hour x 1 after each naloxone dose. Consider transfer to ICU if patient respiratory parameters have not improved after 4 naloxone doses. naloxone (NARCAN) injection 0.4 mg(Linked Group 1) 0.4 mg, Intravenous, EVERY 2 MIN PRN, opioid reversal, Starting on Fri09/03/24 at 0915, Administer intravenous route when available and notify provider when administered. For unintended sedation or respiratory depression if all of the below criteria are met: ~ respiratory rate LESS than or EQUAL to 8. ~ SaO2 less than 92% and or/end-tidal CO2 is greater than 50. ~ the patient is receiving an opioid, has unintended sedation assessed as RASS (-4) or (-5) and patient is currently not on mechanical ventilation. RASS scale (-4) is deep sedation with no response to voice but movement or eye opening to physical stimulation. RASS scale (-5) is unarousable. Patient Monitoring Once the patient has demonstrated a response to the naloxone, continue to monitor respiratory rate, depth, oxygen saturation and end-tidal CO2 (if available) every 15 minutes x 2, then every 30 minutes x 2, then every 1 hour x 1 after each naloxone dose. Consider transfer to ICU if patient respiratory parameters have not improved after 4 naloxone doses., Intra-procedure naloxone (NARCAN) injection 0.4 mg(Linked Group 1) 0.4 mg, Intramuscular, EVERY 2 MIN PRN, opioid reversal, Starting on Fri09/03/24 at 0915, Administer intramuscular if an intravenous route is not available and notify provider when administered. For unintended sedation or respiratory depression if all of the below criteria are met: ~ respiratory rate LESS than or EQUAL to 8. ~ SaO2 less than 92% and or/end-tidal CO2 is greater than 50. ~ the patient is receiving an opioid, has unintended sedation assessed as RASS (-4) or (-5) and patient is currently not on mechanical ventilation. RASS scale (-4) is deep sedation with no response to voice but movement or eye opening to physical stimulation. RASS scale (-5) is unarousable. Patient Monitoring Once the patient has demonstrated a response to the naloxone, continue to monitor respiratory rate, depth, oxygen saturation and end-tidal CO2 (if available) every 15 minutes x 2, then every 30 minutes x 2, then every 1 hour x 1 after each naloxone dose. Consider transfer to ICU if patient respiratory parameters have not improved after 4 naloxone doses., Intra-procedure naloxone (NARCAN) injection 0.4 mg 0.4 mg, Intravenous, EVERY 2 MIN PRN, opioid reversal, Starting on Fri09/03/24 at 1117, Administer intravenous route when available and notify provider when administered. For unintended sedation or respiratory depression if all of the below criteria are met: ~ respiratory rate LESS than or EQUAL to 8. ~ SaO2 less than 92% and or/end-tidal CO2 is greater than 50. ~ the patient is receiving an opioid, has unintended sedation assessed as RASS (-4) or (-5) and patient is currently not on mechanical ventilation. RASS scale (-4) is deep sedation with no response to voice but movement or eye opening to physical stimulation. RASS scale (-5) is unarousable. Patient Monitoring Once the patient has demonstrated a response to the naloxone, continue to monitor respiratory rate, depth, oxygen saturation and end-tidal CO2 (if available) every 15 minutes x 2, then every 30 minutes x 2, then every 1 hour x 1 after each naloxone dose. Consider transfer to ICU if patient respiratory parameters have not improved after 4 naloxone doses. naloxone (NARCAN) injection 0.4 mg 0.4 mg, Intramuscular, EVERY 2 MIN PRN, opioid reversal, Starting on Fri09/03/24 at 1117, Administer intramuscular if an intravenous route is not available and notify provider when administered. For unintended sedation or respiratory depression if all of the below criteria are met: ~ respiratory rate LESS than or EQUAL to 8. ~ SaO2 less than 92% and or/end-tidal CO2 is greater than 50. ~ the patient is receiving an opioid, has unintended sedation assessed as RASS (-4) or (-5) and patient is currently not on mechanical ventilation. RASS scale (-4) is deep sedation with no response to voice but movement or eye opening to physical stimulation. RASS scale (-5) is unarousable. Patient Monitoring Once the patient has demonstrated a response to the naloxone, continue to monitor respiratory rate, depth, oxygen saturation and end-tidal CO2 (if available) every 15 minutes x 2, then every 30 minutes x 2, then every 1 hour x 1 after each naloxone dose. Consider transfer to ICU if patient respiratory parameters have not improved after 4 naloxone doses. ondansetron (ZOFRAN ODT) ODT tab 4 mg(Linked Group 2) 4 mg, Oral, EVERY 6 HOURS PRN, nausea, vomiting, Starting on Fri09/03/24 at 1117, This is Step 1 of nausea and vomiting management. If nausea not resolved in 15 minutes, go to Step 2 prochlorperazine (COMPAZINE). Do not push through foil backing. Peel back foil and gently remove. Place on tongue immediately. Administration with liquid unnecessary With dry hands, peel back foil backing and gently remove tablet. Do not push oral disintegrating tablet through foil backing. Administer immediately on tongue and oral disintegrating tablet dissolves in seconds, then swallow with saliva. Liquid not required. ondansetron (ZOFRAN) injection 4 mg 4 mg, Intravenous, ONCE PRN, nausea, vomiting, Administer over 2-5 Minutes, Starting on Fri09/03/24 at 1023, For 1 dose, Give in ENDO pre procedure prep area., Pre-procedure ondansetron (ZOFRAN) injection 4 mg(Linked Group 2) 4 mg, Intravenous, EVERY 6 HOURS PRN, nausea, vomiting, Administer over 2-5 Minutes, Starting on Fri09/03/24 at 1117, This is Step 1 of nausea and vomiting management. If nausea not resolved in 15 minutes, go to Step 2 prochlorperazine (COMPAZINE). prochlorperazine (COMPAZINE) injection 10 mg(Linked Group 3) 10 mg, Intravenous, EVERY 6 HOURS PRN, nausea, vomiting, Administer over 1-2 Minutes, Starting on Fri09/03/24 at 1117, This is Step 2 of nausea and vomiting management. If nausea not resolved in 15-30 minutes, Notify provider. prochlorperazine (COMPAZINE) tablet 10 mg(Linked Group 3) 10 mg, Oral, EVERY 6 HOURS PRN, nausea, vomiting, Starting on Fri09/03/24 at 1117, This is Step 2 of nausea and vomiting management. If nausea not resolved in 15-30 minutes, Notify provider. simethicone (MYLICON) suspension 133 mg 133 mg, Oral, ONCE PRN, other, gas bubbles, Starting on Fri09/03/24 at 0915, For 1 dose, Give via endoscope, Intra-procedure sodium chloride (PF) 0.9% PF flush 3 mL 3 mL, Intracatheter, EVERY 1 MIN PRN, line flush, other, to ensure patency or to lock dormant line, Starting on Fri09/03/24 at 1023, Pre-procedure sodium chloride (PF) 0.9% PF flush 3 mL 3 mL, Intravenous, EVERY 1 MIN PRN, line flush, Starting on Fri09/03/24 at 0915, Indications: for Peripheral IV flush post IV meds, Intra-procedure 1045 ($Given - Provi hailee: Amelie Mancia RN) sodium chloride 0.9% BOLUS 500 mL Intravenous, 500 mL, ONCE PRN, at 500 mL/hr, Administer over 1 Hours, other, hypotension, Starting on Fri09/03/24 at 0915, For 1 dose, Intra-procedure Linked Groups Order Group 1: naloxone (NARCAN) injection 0.2 mgJump to med 0.2 mg, Intravenous, EVERY 2 MIN PRN, opioid reversal, Starting on Fri09/03/24 at 0915, Administer intravenous route when available and notify provider when administered. For unintended sedation or respiratory depression if all of the below criteria are met: ~ respiratory rate LESS than or EQUAL to 8. ~SaO2 less than 92% and or/end-tidal CO2 is greater than 50. ~ the patient is receiving an opioid, has unintended sedations assessed as RASS (-3), and is currently not on mechanical ventilation. RASS scale moderate (-3) is movement or eye opening to voice but no eye contact. Patient Monitoring Once the patient has demonstrated a response to the naloxone, continue to monitor respiratory rate, depth, oxygen saturation and end-tidal CO2 (if available) every 15 minutes x 2, then every 30 minutes x 2, then every 1 hour x 1 after each naloxone dose. Consider transfer to ICU if patient respiratory parameters have not improved after 4 naloxone doses., Intra- procedure Or naloxone (NARCAN) injection 0.4 mgJump to med 0.4 mg, Intravenous, EVERY 2 MIN PRN, opioid reversal, Starting on Fri09/03/24 at 0915, Administer intravenous route when available and notify provider when administered. For unintended sedation or respiratory depression if all of the below criteria are met: ~ respiratory rate LESS than or EQUAL to 8. ~ SaO2 less than 92% and or/end-tidal CO2 is greater than 50. ~ the patient is receiving an opioid, has unintended sedation assessed as RASS (-4) or (-5) and patient is currently not on mechanical ventilation. RASS scale (-4) is deep sedation with no response to voice but movement or eye opening to physical stimulation. RASS scale (-5) is unarousable. Patient Monitoring Once the patient has demonstrated a response to the naloxone, continue to monitor respiratory rate, depth, oxygen saturation and end-tidal CO2 (if available) every 15 minutes x 2, then every 30 minutes x 2, then every 1 hour x 1 after each naloxone dose. Consider transfer to ICU if patient respiratory parameters have not improved after 4 naloxone doses., Intra-procedure Or naloxone (NARCAN) injection 0.2 mgJump to med 0.2 mg, Intramuscular, EVERY 2 MIN PRN, opioid reversal, Starting on Fri09/03/24 at 0915, Administer intramuscular if an intravenous route is not available and notify provider when administered. For unintended sedation or respiratory depression if all of the below criteria are met: ~ respiratory rate LESS than or EQUAL to 8. ~SaO2 less than 92% and or/end-tidal CO2 is greater than 50. ~ the patient is receiving an opioid, has unintended sedations assessed as RASS (-3), and is currently not on mechanical ventilation. RASS scale moderate (-3) is movement or eye opening to voice but no eye contact. Patient Monitoring Once the patient has demonstrated a response to the naloxone, continue to monitor respiratory rate, depth, oxygen saturation and end-tidal CO2 (if available) every 15 minutes x 2, then every 30 minutes x 2, then every 1 hour x 1 after each naloxone dose. Consider transfer to ICU if patient respiratory parameters have not improved after 4 naloxone doses., Intra- procedure Or naloxone (NARCAN) injection 0.4 mgJump to med 0.4 mg, Intramuscular, EVERY 2 MIN PRN, opioid reversal, Starting on Fri09/03/24 at 0915, Administer intramuscular if an intravenous route is not available and notify provider when administered. For unintended sedation or respiratory depression if all of the below criteria are met: ~ respiratory rate LESS than or EQUAL to 8. ~ SaO2 less than 92% and or/end-tidal CO2 is greater than 50. ~ the patient is receiving an opioid, has unintended sedation assessed as RASS (-4) or (-5) and patient is currently not on mechanical ventilation. RASS scale (-4) is deep sedation with no response to voice but movement or eye opening to physical stimulation. RASS scale (-5) is unarousable. Patient Monitoring Once the patient has demonstrated a response to the naloxone, continue to monitor respiratory rate, depth, oxygen saturation and end-tidal CO2 (if available) every 15 minutes x 2, then every 30 minutes x 2, then every 1 hour x 1 after each naloxone dose. Consider transfer to ICU if patient respiratory parameters have not improved after 4 naloxone doses., Intra- procedure Group 2: ondansetron (ZOFRAN ODT) ODT tab 4 mgJump to med 4 mg, Oral, EVERY 6 HOURS PRN, nausea, vomiting, Starting on Fri09/03/24 at 1117, This is Step 1 of nausea and vomiting management. If nausea not resolved in 15 minutes, go to Step 2 prochlorperazine (COMPAZINE). Do not push through foil backing. Peel back foil and gently remove. Place on tongue immediately. Administration with liquid unnecessary With dry hands, peel back foil backing and gently remove tablet. Do not push oral disintegrating tablet through foil backing. Administer immediately on tongue and oral disintegrating tablet dissolves in seconds, then swallow with saliva. Liquid not required. Or ondansetron (ZOFRAN) injection 4 mgJump to med 4 mg, Intravenous, EVERY 6 HOURS PRN, nausea, vomiting, Administer over 2-5 Minutes, Starting on Fri09/03/24 at 1117, This is Step 1 of nausea and vomiting management. If nausea not resolved in 15 minutes, go to Step 2 prochlorperazine (COMPAZINE). Group 3: prochlorperazine (COMPAZINE) injection 10 mgJump to med 10 mg, Intravenous, EVERY 6 HOURS PRN, nausea, vomiting, Administer over 1-2 Minutes, Starting on Fri09/03/24 at 1117, This is Step 2 of nausea and vomiting management. If nausea not resolved in 15-30 minutes, Notify provider. Or prochlorperazine (COMPAZINE) tablet 10 mgJump to med 10 mg, Oral, EVERY 6 HOURS PRN, nausea, vomiting, Starting on Fri09/03/24 at 1117, This is Step 2 of nausea and vomiting management. If nausea not resolved in 15- 30 minutes, Notify provider. documented in this encounter Care Teams Alterations Workroom Clerk Relationship Specialty Start Date End Date [facility], [address] [address] PCP - General 09/03/24 documented as of this encounter
--- OUTSIDE RECORDS SUMMARY | 2024-09-03 10:00 | XMS_ITS | Encounter Summary ---
Author Organization [facility] Address [facility] [place] [address] Care Team Providers Care Char House Supervisor Name Role Phone Clinic, [facility] Primary Care Provider Encounter Details Date Type Department Care Team (Late st Contact Info) Description 09/03/2024 10:00 AM CDT - 09/03/2024 10:30 AM CDT Surgery [facility] [address] [place] [address] Melquiades Donohue MD [facility] [address] [place] [address] [address] [place] [address] Colonoscopy, Screening with polypectomies by cold exacto snare Surgery Details Date/Time Status Location OR Service Patient Class Case Class Case Type Trauma Case? 09/03/2024 10:00 AM Posted GI GI B Gastroenterology Outpatient Elective Panel 1 Procedure LRB Anes Op Region Wound Class Comments Colonoscopy, Screening with polypectomies by cold exacto snare N/A Moderate Sedation Rectum II-Clean Contamina moriah Surgeon Surgeon Role Service Panel Melquiades Donohue MD Primary Gastroenterology 1 Special Needs Free Colonoscopy Screening Patient documented in this encounter Social History Tobacco Use Types Packs/Day Years Used Date Smoking Tobacco: Never Smokeless Tobacco: Never Tobacco Cessation:Counseling Given: Not Answered Alcohol Use Standard Drinks/Week Comments Never 0 (1 standard drink = 0.6 oz pur e alcohol) Comments Unknown Sex and Gender Information Value Date Recorded Sex Assigned at Not on file Legal Sex Female 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 * Colon Polyps (Nigerian) documented in this encounter Medications at Time of Discharge tamoxifen (NOLVADEX) 10 MG tablet Take 10 mg by mouth daily. documented as of this encounter Consult Notes * Melquiades Donohue MD - 09/03/2024 9:16 AM CDT Pre-Endoscopy History and Physical Salome Garcia Date of : 1975 Age: [age] year old Date of Procedure: 09/03/2024 Primary care provider: [facility] Type of Endoscopy: colonoscopy Reason for Procedure: [...] CDT) Case Report Surgical Pathology Report Case: [id number] Authorizing Provider: Melquiades Donohue MD Collected: 09/03/2024 10:56 AM Ordering Location: [facility] Received: 09/03/2024 11:19 AM End[facility] [place] Pathologist: Dang Wang MD Specimen: Large Intestine, [...] examination has been performed 09/06/2024 9:21 AM T LABORATORY Performing Labs The technical component of this testing was completed at [facility]. Stain controls for all stains resulted within this report have been reviewed and show appropriate reactivity. 09/06/2024 9:21 AM CDT LABORATORY Case Images 09/06/2024 9:21 AM T LABORATORY Polyp CECUM STRUCTURE / Unknown 09/03/2024 10:56 AM CDT 09/03/2024 11:19 AM CDT us Melquiades Donohue MD LAB - [facility] AP Final Resul t LABORATORY [facility] Lab [address] 1[address] floor, [address] [place] [address], [place] [phone] LABORATORY [facility] Lab [address] Lab (1st floor, no room number) [place] [address], [facility] * COLONOSCOPY (09/03/2024 10:38 AM CDT) COLONOSCOPY [facility] Patient Name: Salome Garcia Procedure Date: 09/03/2024 10:38 AM Date of [...] continuously. The Olympus Pediatric Colonoscope Model # [id number]-MF079H, Censitrac # [id number] was introduced through the anus and advanced [...] pathology results. Procedure Code(s): --- Professional --- 70130, Colonoscopy, flexible; with removal of tumor(s), polyp(s), or other lesion(s) by snare technique Diagnosis Code(s): --- Professional --- D12.0, Benign neoplasm of cecum Z12.11, Encounter for screening for malignant neoplasm of colon CPT copyright 2021 [employer]. All rights reserved. The codes documented in this report are preliminary and upon automotive parts specialist review may be revised to meet current [...] RESULTS documented in this encounter Visit Diagnoses Diagnosis Constipation Unspecified constipation Abdominal pain Abdominal pain, unspecified site documented in this encounter Administered Medications Inactive Administered [...] on Fri09/03/24 at 0915, For 1 dose, [place] throat with 1 spray 5 minutes prior [...] on Fri09/03/24 at 0915, For 1 dose, [place] throat with 1 spray 5 minutes prior [...] 6 HOURS PRN, nausea, vomiting, Starting on 09/03/24 at 1117, This is Step 2 of nausea and vomiting management. If nausea not resolved in 15- 30 minutes, Notify provider. documented in this encounter Care Teams Char House Supervisor Relationship Specialty Start Date End Date [facility], [address] [address] PCP - General 09/03/24 documented as of this encounter
--- OUTSIDE RECORDS SUMMARY | 2024-10-18 21:42 | XMS_ITS | Clinical Summary ---
Author Organization [place] Address [address] [place] [address] Care Team Providers Care Conference Specialist Name Role Phone Clinic, [facility] Primary Care Provider Allergies Active Allergy Reactions Criticality Noted Date Comments Iodine Hives 09/03/2024 Medications tamoxifen (NOLVADEX) 10 MG tablet Take 10 mg by mouth daily. Active Encounters Date Type Department Care Team Description 09/03/2024 10:00 AM CDT - 09/03/2024 10:30 AM CDT Surgery [facility] [place] [address] [place] [address] Melquiades Donohue MD Colonoscopy, Screening with polypectomies by cold exacto snare 09/03/2024 9:06 AM CDT - 09/03/2024 12:10 PM CDT Hospital Encounter [facility] [place] [address] [place] [address] Melquiades Donohue MD Discharge Disposition: Home or Self Care 09/03/2024 9:00 AM CDT Office Visit [facility] Cath Lab Technologist Services [phone] Jazz Charles from Last 3 Months Family History Medical History Relation Comments Colon Cancer No family hx of Social History Tobacco Use Types Packs/Day Years Used Date Smoking Tobacco: Never Smokeless Tobacco: Never Tobacco Cessation:Counseling Given: Not Answered Alcohol Use Standard Drinks/Week Comments Never 0 (1 standard drink = 0.6 oz pur e alcohol) Comments Unknown Sex and Gender Information Value Date Recorded Sex Assigned at Not on file Legal Sex 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 Gender Identity Not on file Sexual Orientation Not on file Last Filed Vital Signs Vital Sign Reading [...] Mass Index 32.54 09/03/2024 10:27 AM CDT Plan of Treatment Health Maintenance Due Date Last Done Comments ADVANCE CARE PLANNING 1975 ANNUAL REVIEW OF HM ORDERS 1975 CT COLONOGRAPHY 1975 DIABETES SCREENING 1975 FIT 1975 FLEX SIG 1975 sDNA (Cologuard) 1975 HEPATITIS C SCREENING 1994 HEPATITIS B VACCINE (1 of 3 - 19+ 3-dose series) 05/18/1995 LIPID 2016 PAP 11/30/2022 12/01/2019 YEARLY PREVENTIVE VISIT 12/31/2022 01/01/20, 12/19/2020, 12/01/2019 COVID-19 VACCINE ( season) 2023 02/14/2023, 12/31/2021, 12/19/2020, Additional history exists MAMMO SCREENING 01/01/2024 12/31/2021, 03/2020, 12/17/2019 PHQ-2 (once per calendar year) 2024 INFLUENZA VACCINE (#1) 2024 , 02/14/2021, 11/15/2019, Additional history exists ZOSTER VACCINE (1 of 2) 2026 DTAP/TDAP/TD VACCINE (3 - Td or Tdap) 08/13/2027 08/12/2017, 09/03/2006, 12/25/2005 COLONOSCOPY 09/04/2027 09/03/2024, 09/03/2024 COLORECTAL CANCER SCREENING 09/04/2027 HIV SCREENING Completed 10/24/2006 HPV VACCINE (No Doses Required) Completed MENINGITIS VACCINE Aged Out No longer eligible based on patient's age to complete this topic PNEUMOCOCCAL VACCINE: PEDIATRICS (0 to 5 YEARS) AND AT-RISK PATIENTS (6 to 49 YEARS) Aged Out No longer eligible based on patient's age to complete this topic Procedures Procedure Name Priority Date/Time Associated Diagnosis Comments SURGICAL PATHOLOGY EXAM Routine 09/03/2024 10:56 AM CDT COLONOSCOPY Routine 09/03/2024 10:38 AM CDT COLONOSCOPY W SNARE REMOVAL TUMOR/POLYP/LESION 09/03/2024 10:33 AM CDT Constipation Abdominal pain Special Needs Free Colonoscopy Screening Patient from Last 3 Months Results * Surgical Pathology Exam (09/03/2024 10:56 AM CDT) Case Report Surgical Pathology Report Case: [id number] Authorizing Provider: Melquiades Donohue MD Collected: 09/03/2024 10:56 AM Ordering Location: [facility] Received: 09/03/2024 11:19 AM [facility] [place] Pathologist: Dang Wang MD Specimen: Large Intestine, [...] component of this testing was completed at [facility]. Stain controls for all stains resulted within this report have been reviewed and show appropriate reactivity. 09/06/2024 9:21 AM CDT LABORATORY Case Images 09/06/2024 9:21 AM CDT LABORATORY Polyp CECUM STRUCTURE / Unknown 09/03/2024 10:56 AM CDT 09/03/2024 11:19 AM CDT us Melquiades Donohue MD LAB - [facility] AP [facility] Resul t LABORATORY [facility] Acute Care Lab [address] 1[address] floor, [address] [place] [address], [facility] [phone] LABORATORY [facility] [address] [facility] Lab (1st floor, no room number) [place] [address] * COLONOSCOPY (09/03/2024 10:38 AM CDT) COLONOSCOPY [facility] Patient Name: Salome Garcia Procedure Date: [...] continuously. The Olympus Pediatric Colonoscope Model # [id number]-PF922M, Censitrac # [id number] was introduced through the anus and advanced [...] pathology results. Procedure Code(s): --- Professional --- 22088, Colonoscopy, flexible; with removal of tumor(s), polyp(s), or other lesion(s) by snare technique Diagnosis Code(s): --- Professional --- D12.0, Benign neoplasm of cecum Z12.11, Encounter for screening for malignant neoplasm of colon CPT copyright 2021 [employer]. All rights reserved. The codes documented in this report are preliminary and upon italian lecturer review may be revised to meet current [...] MD PROCEDURES Final Resul t RADIOLOGY RESULTS from Last 3 Months Care Teams Conference Specialist Relationship Specialty Start Date End Date Clinic, [place] [address] PCP - General 09/03/24
--- OUTSIDE RECORDS SUMMARY | 2024-10-18 21:42 | XMS_ITS | Clinical Summary ---
Author Organization [facility] Address [address] [place] [address] Care Team Providers Care Fugitive Investigator Name Role Phone Vashti Gunn Primary Care Provider Tiffany Montelongo MD Unavailable Eloisa Guy MD Unavailable Allergies Active Allergy Reactions Criticality Noted Date Comments Iodine Rash 05/08/201106/2007, Topical iodine Psyllium Husk (Aspartame) 10/05/2010 Swelling from fiber suppliment (05/28) Medications acetaminophen (TYLENOL) 325 mg tablet Take 1-2 tablets by mouth every 6 hours. Max acetaminophen dose: 4000mg in 24 hrs. 30 tablet 0 Active famotidine (PEPCID) 20 mg tabletIndicatio ns:Gastric reflux Take 1 Tablet (20 mg) by mouth 2 times daily. 180 Tablet 3 2 Active polyethylene glycoL (MIRALAX) 17 gram/dose powderIndicatio ns:Constipation , acute Mix 1 scoop (17 g) in liquid then take by mouth once daily. 510 g 2 Active hydrOXYzine HCL (ATARAX) 25 mg tabletIndicatio ns:Anxiety Take 1 Tablet (25 mg) by mouth every 6 hours if needed for Anxiety. 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 Take 1.5 tab for pain 6/10 or higher.). 120 Tablet 3 2 Active methocarbamoL (ROBAXIN) 750 mg tabletIndicatio ns:Myofascial pain,Rotator cuff arthropathy of right shoulder Take 1 Tablet (750 mg) by mouth every 6 hours if needed for Muscle Spasm. 90 Tablet 3 3 Active tamoxifen (NOLVADEX) 10 mg tabletIndicatio ns:Malignant neoplasm of right female breast, unspecified estrogen receptor status, unspecified site of breast (HC) TAKE 1 TABLET (10 MG) BY MOUTH ONCE DAILY. 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 Depression with anxiety 01/04/2013 Gastro - esophageal reflux disease 12/10/2011 Overview (12/04/2012): EGD 11/2012 normal Mixed hyperlipidemia 10/11/2010 Resolved Problems Problem Noted Date Diagnosed Date Resolved Date Gestational diabetes 10/05/2010 012 Overview (10/05/2010): With two pregnancies Immunizations Immunization Administration Dates Next Due AMB Influenza, IIV3 (Age >=3 years)(Flu Clinic Only) 01/02/2010,01/30/2009,12/08/2007 AMB Influenza, IIV4 PF (=>6 mos Flulaval,Fluzone Fluarix)(Flu Clinic Only) 02/04/2017 COVID-19 vaccine (Arzeda-Picomize NTech 30mcg/0.3mL) 12YO+ BIVALENT PF, MDV 12/31/2021 COVID-19 vaccine (Arzeda-Picomize NTech 30mcg/0.3mL) PF, MDV 12/19/2020 Influenza, IIV3 (Age 6-35 mos) 01/30/2009 Influenza, IIV3 (Age >=3 years) 02/26/19 14,11/11/2011,02/12/2011,2009,12/08/2007,12/30/2006,12/25/2005,1 03/22/2003,01/06/2003 Influenza, IIV4 12/31/2021,,11/15/2019,2019,11/22/2017,12/16/2015,03/09/2015,0 11/13/2013 Td (Age >=7 Years) 12/25/2005 Td, Preservative Free (age > = 7 Years) 08/12/2017 Tdap 09/03/2006 Family History Medical History Relation Name Comments Blindness Father Heart Disease Father enlarged heart Hypertension Father Kidney disease Father Good Health Maternal Grandfather Good Health Maternal Grandmother Diabetes Mother Hypertension Mother Good Health Paternal Grandfather Good Health Paternal Grandmother Hyperlipidemia Sister Cancer-breast No Family History Cancer-colon No Family History Cancer-ovarian No Family History Cancer-prostate No Family History Relation Name Status Comments Father Maternal Grandfather Maternal Grandmother Mother Paternal Grandfather Paternal Grandmother Sister Social History Tobacco Use Types Packs/Day Years Used Date Smoking Tobacco: Never Smokeless Tobacco: Never Tobacco Cessation:Counseling Given: Yes Alcohol Use Standard Drinks/Week Comments No 0 (1 standard drink = 0.6 oz pur e alcohol) PHQ-2 Answer Date Recorded PHQ-2 Score 0 04/19/2018 Social Connections Answer Date Recorded Frequency of Communication with Friends and Fami ly Not on file 02/12/2021 Financial Resource Strain Answer Date R ecorded Difficulty of Paying Living Expenses Not on file 02/12/2021 Difficulty of Paying Living Expenses Not on file 02/12/2021 Comments No Sex and Gender Information Value Date Recorded Sex Assigned at Not on file Legal Sex Female 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 OPERATOR Gender Identity Not on file Sexual Orientation Not on file Obstetrics History Para Term AB IAB SAB Ectopic Multiple Livin g Live Births 3 3 3 3 2 Date Outcome GA Total Labor Labor//3rd Weight Sex Type Anes PTL Jennifer A1 A5 Name Clin Term 003 Term 37w 0d 11h 00m/ 2.72 kg (6 lb) F Vag Livin g Veroni ca 005 Term 38w 0d 1h 00m/ 3.18 kg (7 lb) F Vag Livin g Kassy Comments:Bedrest from 8 weeks for 1st trimester bleeding; was able to get back to full activity Last Filed Vital Signs Vital Sign Reading Time Taken Comments Blood Pressure 111/55 03/04/2022 3:55 PM TEMPERATURE LOGGING OPERATOR Pulse 86 03/04/2022 3:55 PM TEMPERATURE LOGGING OPERATOR Temperature 36 C (96.8 F) 03/04/2022 3:55 PM TEMPERATURE LOGGING OPERATOR Respiratory Rate 16 03/04/2022 3:55 PM TEMPERATURE LOGGING OPERATOR Oxygen Saturation 100% 03/04/2022 3:55 PM TEMPERATURE LOGGING OPERATOR Inhaled Oxygen Concentration - - Weight 66.2 kg (146 lb) 03/04/2022 3:55 PM TEMPERATURE LOGGING OPERATOR Height 148 cm (4' 10.27) 12/31/2021 11:37 AM CS T Body Mass Index 30.23 12/31/2021 11:37 AM TEMPERATURE LOGGING OPERATOR Plan of Treatment Health Maintenance Due Date Last Done Comments Hepatitis C screening for age 18-79 1994 Hepatitis B series for 19+ (1 of 3 - 19+ 3-dose series) 05/18/1995 Depression screening for age 12+ 12/03/2018 12/03/2017, 12/03/2017, 07/11/2015, Additional history exists Colonoscopy through age 75 2021 BMI (ht and wt on same day) for age 18+ 12/31/2022 12/31/2021, 08/15/2021, 12/19/2020, Additional history exists COVID-19 vaccine series ( season) 2023 12/31/2021, 12/19/2020, 08/08/2020, Additional history exists Mammogram for age 45-75 02/29/2024 02/28/19 24, 12/31/2021, 12/19/2020, Additional history exists Influenza Vaccine (#1) 2024 2, 02/14/2021, 11/15/2019, Additional history exists Pap test for age 21-65 11/30/2024 0, 12/01/2019, 07/11/2015, Additional history exists Lipids for age 45-75 12/31/2026 12/31/2021, 12/19/2020, 12/01/2019, Additional history exists Tetanus booster 08/13/2027 08/12/2017, 08/17, 12/25/2005 RSV vaccine for adults or (1 - 1-dose 75+ series) 05/18/2051 HIV for age 15-65 Completed 10/24/2006 Pneumococcal series for age 6-49 Aged Out No longer eligible based on patient's age to complete this topic Procedures Procedure Name Priority Date/Time Associated Diagnosis Comments SCAN-MAMMOGRAPHY REPORT 02/28/2023 12:00 AM TEMPERATURE LOGGING OPERATOR LIPID PANEL W REFLEX MEASURED LDL Routine 12/31/2021 12:32 PM TEMPERATURE LOGGING OPERATOR Screening cholesterol level BREAD RACKER THIN PREP PAP SCREEN IMAGED Routine 12/01/2019 3:03 PM CDT Screening for cervical cancer ANTI HIV 1/2 Routine 10/24/2006 2:04 PM CDT Supervision Of Other Normal (Hc) from Last 3 Months or Most Recently Relevant to Health Maintenance Results * SCAN-MAMMOGRAPHY REPORT (02/28/2023 12:00 AM TEMPERATURE LOGGING OPERATOR) Anatomical Region Laterality Modality Other us Scanner OTHER Final Result * (ABNORMAL) LIPID PANEL W REFLEX MEASURED LDL (12/31/2021 12:32 PM TEMPERATURE LOGGING OPERATOR) CHOLESTEROL,TOTAL 195 100 - 199 mg/dL 01/01/2022 9:31 AM TEMPERATURE LOGGING OPERATOR [facility] TRIGLYCERIDES 227(H) <150 mg/dL 01/01/2022 9:31 AM TEMPERATURE LOGGING OPERATOR [facility] HDL CHOLESTEROL 47 >40 mg/dL 9:31 AM TEMPERATURE LOGGING OPERATOR [facility] NON-HDL CHOLESTEROL 148(H) <145 mg/dl 01/01/2022 9:31 AM TEMPERATURE LOGGING OPERATOR [facility] CHOL/HDL RATIO 4.15 <4.50 01/01/2022 9:31 AM TEMPERATURE LOGGING OPERATOR [facility] LDL CHOLESTEROL 103 <=130 mg/dL 01/01/2022 9:31 AM TEMPERATURE LOGGING OPERATOR [facility] VLDL CHOLESTEROL 45(H) <=30 mg/dL 01/01/2022 9:31 AM TEMPERATURE LOGGING OPERATOR [facility] PROVIDER ORDERED STATUS FASTING 01/01/2022 9:31 AM TEMPERATURE LOGGING OPERATOR [facility] Blood BLOOD SPECIMEN / Unknown Venipuncture / Unknown 12/31/2021 12:32 PM TEMPERATURE LOGGING OPERATOR 12/31/2021 12:32 PM TEMPERATURE LOGGING OPERATOR Vashti WHITFIELD CHEMISTRY Final R esult [facility] [address] [place] [address], * BREAD RACKER THIN PREP PAP SCREEN IMAGED (12/01/2019 3:03 PM CDT) Case Report Gynecologic Cytology Report Case: [id number] Authorizing Provider: Vashti Gunn PA Collected: 12/01/2019 1503 Ordering Location: [facility] Received: 12/01/2019 1648 Clinic First Screen: Nydia, Sean Specimen: BREAD RACKER ThinPrep Vial Screening, Cervical 12/10/2019 11:03 AM CDT [facility] INTERPRETATION/ RESULT NEGATIVE FOR INTRAEPITHELIAL LESION OR MALIGNANCY (NIL) (none) 12/10/2019 11:03 AM CDT [facility] at 1103 CDT SPECIMEN ADEQUACY Satisfactory for evaluation Endocervical component present 12/10/2019 11:03 AM CDT [facility] HPV REQUEST HPV and PAP 12/10/2019 11:03 AM CDT [facility] Date of LMP unsure 12/10/2019 11:03 AM CDT [facility] Last Pap Date 07/11/15 12/10/2019 11:03 AM CDT [facility] Last Pap Result NIL 0 11:03 AM CDT [facility] Abnormal Pap or [place] Bx in last 5 years No 12/10/2019 11:03 AM CDT [facility] Menstrual Status Irregular Periods 12/10/2019 11:03 AM CDT [facility] [place] Bx Done Today No 12/10/2019 11:03 AM CDT [facility] Additional Information None given 12/10/2019 11:03 AM CDT [facility] Comment: Cytology is screened at [facility] - [address] [facility] [address] [address] and [facility] - [address] , [place] [address] and [facility] - [address] [place] [address] Interpreted at [facility] - [address], [place] [address] Automated Review Successful 12/10/2019 11:03 AM CDT [facility] Comment:Specimen processed s uccessfully by automated manual machinist device, ThinPrep Imaging System, [employer] ANCILLARY TESTING BREAD RACKER HPV Ordered, Please see separate report 12/10/2019 11:03 AM CDT [facility] Note The pap test is a screening technique, not a diagnostic procedure. It is used primarily to screen for squamous cancers and precursor lesions. Published studies have shown that it is subject to both false negative and false positive results. The pap test should not be used as the sole means to diagnose or exclude pre-malignant and malignant lesions. 12/10/2019 11:03 AM CDT [facility] Other (Cervical) Non-Blood / Unknown 12/01/2019 3:03 PM CDT 12/01/2019 4:45 PM CDT us Vashti WHITFIELD PATHOLOGY/CYTOLOGY Katherin vitale Result [facility] [address] [place] [address], * ANTI HIV 1/2 (10/24/2006 2:04 PM CDT) ANTI HIV 1/2 Non-reacti ve [facility] Blood specimen (specimen) BLOOD SPECIMEN / Unknown 10/24/2006 2:04 PM CDT 10/24/2006 1:55 PM CDT Angela Contreras NP SEND OUTS F inal Result [facility] INTERNAL ZIP [id number] [address] from Last 3 Months or Most Recently Relevant to Health Maintenance Insurance WORKERS COMP Advance Directives * Full Code (Latest Code Status on File) Date Activated Date Inactivated Comments 01/31/2020 8:21 AM 01/31/2020 4:18 PM Question Answer Comments Code Status Discussion: Not Discussed Care Teams Fugitive Investigator Relationship Specialty Start Date End Date Vashti Gunn PA [address] [place] [address] PCP - General Physician Frame Wirer 05/31/17 Tiffany Montelongo MD [address] [place] [address] Surgery - General 01/10/20 Eloisa Guy MD [address] [place] [address] Oncology Oncology 02/24/20
[2024-10-18 21:43] VITALS: BP 162/106; PULSE 88; RESP 22; TEMP 36.1; O2SAT 99; BMI 29.3
--- NOTE | 2024-10-18 21:47 | ED.GENADULT ---
HPI - General Adult General Chief complaint: Chest Pain Stated complaint: chest pain Time Seen by Provider: 10/18/24 21:45 History of Present Illness HPI narrative: Pt c/o chest pain for thirty minutes. Pain is left chest, does not radiate. States she felt a little nauseated but now just the pain. Pain 7/10 49-year-old woman presenting to the emergency department with concern of chest pressure mid left chest over the last 30 minutes. Maybe has been feeling a little lightheaded. Upon arrival during triage see did seem to be less responsive a 1 point but responded quickly to a sternal rub by nursing. Does have a history of GERD but she says this does feel different. Was experiencing some nausea but now just this pressure 08/26. Appears to have been tearful in becomes more tearful during our conversation. No shortness of breath. Does struggle with anxiety and recounts having a pill to take at home. Unclear what this is. Has also treated with tamoxifen for right-sided breast cancer. Related Data Home Medications ?Medication ?Instructions ?Recorded ?Confirmed tamoxifen 10 mg tablet 10 mg PO BID 02/28/23 02/28/23 Allergies Allergy/AdvReac Type Severity Reaction Status Date / Time iodine Allergy Verified 10/18/24 21:53 Review of Systems Status of ROS: Reports: 6 or more systems reviewed and unremarkable except as noted in History and below [facility] Medical History Gestational diabetes ?O24.419 - Gestational diabetes mellitus in , unspecified control (ICD-10) Surgical History H/O hand surgery ?Z98.890 - Other specified postprocedural states (ICD-10) History of lumpectomy of right breast ?Z98.890 - Other specified postprocedural states (ICD-10) Social History Smoking Status: Never smoker Do you use any of these nicotine containing products: None Second hand tobacco smoke exposure: No How often do you have a drink containing alcohol: never How often do you have six or more drinks on one occasion: Never AUDIT-C Alcohol total score: 0 Non-prescribed substance use: denies use service: No Exam Narrative: Exam Narrative: Accompanied by partner and child. Pleasant. Appears rather anxious. Tearful. Bespectacled. Breathing easily. Lungs appear to be clear. Heart in regular rate and rhythm without murmur rub or gallop. Palpation to the chest does seem to cause some worsening of the discomfort in the area as mentioned. Not consistently. Abdomen is soft and nontender. Extremities are well perfused without edema Const: Vital Signs, click to edit/add: Vital Signs - 24 hr 10/18/24 21:43 10/18/24 23:40 Temperature 97.0 F L 98.0 F Pulse Rate [Pulse Oximeter] 88 80 Respiratory Rate 22 16 Blood Pressure [Ri t Upper Arm] 162/106 H 150/94 H Pulse Oximetry 99 98 Oxygen Delivery Me thod Room Air Room Air Documenting provider has reviewed patient's vital signs: yes Course Vital Signs Vital signs: Initial Vital Signs Temperature 97.0 F L 10/18/24 21:43 Temperature Source Temporal Artery Scan 10/18/24 21:43 Pulse Rate 88 10/18/24 21:43 Pulse Rhythm Regular 10/18/24 21:43 Respiratory Rate 22 10/18/24 21:43 Blood Pressure 162/106 H 10/18/24 21:43 Blood Pressure Mean 124 H 10/18/24 21:43 Blood Pressure Position Supine 10/18/24 21:43 Pulse Oximetry 99 10/18/24 21:43 Oxygen Delivery Method Room Air 10/18/24 21:43 Vital Signs Temperature 97.0 F L 10/18/24 21:43 Pulse Rate 88 10/18/24 21:43 Respiratory Rate 22 10/18/24 21:43 Blood Pressure 162/106 H 10/18/24 21:43 Pulse Oximetry 99 10/18/24 21:43 Oxygen Delivery Method Room Air 10/18/24 21:43 Temperature 98.0 F 10/18/24 23:40 Pulse Rate 80 10/18/24 23:40 Respiratory Rate 16 10/18/24 23:40 Blood Pressure 150/94 H 10/18/24 23:40 Pulse Oximetry 98 10/18/24 23:40 Oxygen Delivery Method Room Air 10/18/24 23:40 Medications Administered Medications: Discontinued Medications Generic Name Dose Route Start Last Admin Trade Name Freq PRN Reason Stop Dose Admin Lorazepam 1 mg 10/18/24 21:58 10/18/24 22:03 Lorazepam 1 Mg Tablet PO 10/18/24 21:59 1 mg ONCE ONE Administration Medical Decision Making MDM Narrative Medical decision making narrative: Seems to have some mild chest wall component and certainly exacerbation of anxiety. I did offer some medication like lorazepam for the anxiety and this is accepted. Might yet though have ischemic cardiovascular event or pulmonary embolus. Biliary colic? Not tender in right upper quadrant on exam though. Initial EKG independently reviewed by me is reassuring with normal sinus rhythm at a rate of 90. I do not appreciate ischemic changes. 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 Was given 1 mg of lorazepam. Upon reassessment notes improvement. Near absence of this chest discomfort now. She is less tearful. Did repeat troponin which was also normal. Salome no longer has any chest discomfort on reassessment. Feels comfortable going home with family. No events on monitor during time in the emergency department. Labs are reassuring. With normal D-dimer and absence of symptoms I think unlikely that has vascular disruption or pulmonary embolus. See patient discharge plan for further discussion I am relieved you are feeling better. I am reassured by your evaluation here today. I do not know what caused your chest pain but I do think it was understandably exacerbated by anxiety. Dr. Saul is a very good physician. Please follow-up with her to discuss your visit here today. Medical Records Medical records reviewed: Yes I reviewed the patient's medical records Lab Data Lab results reviewed: Yes I reviewed the patient's lab results Labs: Lab Results 10/18/24 10/18/24 10/18/24 Range/Units 21:50 21:58 22:21 WBC 6.25 (4.50-11.00) K/uL RBC 4.69 (4.00-5.20) m/uL Hgb 14.0 (12.0-16.0) gm/dL Hct 41.4 (33.0-51.0) % MCV 88 (80-100) fL MCH 30 (26-34) pg MCHC 34 (32-36) gm/dL RDW Coeff of Ruben 13.0 (11.5-15.5) % Plt Count 243 (140-440) K/uL Neut % (Auto) 42.8 (42.0-72.0) % Lymph % (Auto) 47.7 H (20-44) % [place] % (Auto) 7.5 (0.0-11.0) % Eos % (Auto) 1.6 (0.0-7.0) % Baso % (Auto) 0.2 (0.0-3.0) % Neut # (Auto) 2.68 (1.7-7.0) K/uL Lymph # (Auto) 3.00 H (0.90-2.90) K/uL [place] # (Auto) 0.50 (0.00-0.90) K/UL Eos # (Auto) 0.10 (0.00-0.50) K/uL Baso # (Auto) 0.01 (0.00-0.30) K/uL Abs Immat Gran (auto) 0.01 (0.00-0.30) K/uL Imm/Tot Granulo (auto) 0.2 % PT Cancelled INR Cancelled D-Dimer Quant (PE/DVT) 0.34 (0.00-0.50) ug/ml Sodium 138 (135-149) mmol/L Potassium 3.8 (3.6-5.1) mmol/L Chloride 104 (96-114) mmol/L Carbon Dioxide 25 (20-32) mmol/L Anion Gap 9 (7-15) mEq/L BUN 13 (5-24) mg/dL Creatinine 0.5 (0.5-1.5) mg/dL Estimated Creat Clear 98.84 Estimated GFR 116 ml/min Glucose 125 H (60-115) mg/dL Calcium 9.3 (8.4-10.6) mg/dL Total Bilirubin 0.4 (0.1-1.5) mg/dL Direct Bilirubin 0.3 (0.0-0.5) mg/dL AST 39 H (12-35) U/L ALT 24 (4-35) U/L Alkaline Phosphatase 117 (40-150) U/L Troponin I < 0.01 (0.01-0.04) ng/mL C-Reactive Protein < 0.5 L (0.5-1.0) mg/dL NT-Pro-B Natriuret Pep 43 (See Note) pg/mL Total Protein 9.0 H (6.0-8.3) g/dL Albumin 4.8 (3.3-5.0) g/dL Lab Acknowledgement Test Added POC Troponin I 0.00 L (0.01-0.04) ng/ml 10/18/24 Range/Units 23:40 WBC (4.50-11.00) K/uL RBC (4.00-5.20) m/uL Hgb (12.0-16.0) gm/dL Hct (33.0-51.0) % MCV (80-100) fL MCH (26-34) pg MCHC (32-36) gm/dL RDW Coeff of Ruben (11.5-15.5) % Plt Count (140-440) K/uL Neut % (Auto) (42.0-72.0) % Lymph % (Auto) (20-44) % [place] % (Auto) (0.0-11.0) % Eos % (Auto) (0.0-7.0) % Baso % (Auto) (0.0-3.0) % Neut # (Auto) (1.7-7.0) K/uL Lymph # (Auto) (0.90-2.90) K/uL [place] # (Auto) (0.00-0.90) K/UL Eos # (Auto) (0.00-0.50) K/uL Baso # (Auto) (0.00-0.30) K/uL Abs Immat Gran (auto) (0.00-0.30) K/uL Imm/Tot Granulo (auto) % PT INR D-Dimer Quant (PE/DVT) (0.00-0.50) ug/ml Sodium (135-149) mmol/L Potassium (3.6-5.1) mmol/L Chloride (96-114) mmol/L Carbon Dioxide (20-32) mmol/L Anion Gap (7-15) mEq/L BUN (5-24) mg/dL Creatinine (0.5-1.5) mg/dL Estimated Creat Clear Estimated GFR ml/min Glucose (60-115) mg/dL Calcium (8.4-10.6) mg/dL Total Bilirubin (0.1-1.5) mg/dL Direct Bilirubin (0.0-0.5) mg/dL AST (12-35) U/L ALT (4-35) U/L Alkaline Phosphatase (40-150) U/L Troponin I (0.01-0.04) ng/mL C-Reactive Protein (0.5-1.0) mg/dL NT-Pro-B Natriuret Pep (See Note) pg/mL Total Protein (6.0-8.3) g/dL Albumin (3.3-5.0) g/dL Lab Acknowledgement POC Troponin I 0.00 L (0.01-0.04) ng/ml ECG Data Attestation: I personally reviewed and interpreted this ECG as follows: (Normal sinus rhythm at a rate of 90. No ischemic changes.) Discharge Plan Discharge Clinical Impression: Chest pain Patient Disposition: Home w/ Parent or Adult Condition: Improved Additional Instructions: I am relieved you are feeling better. I am reassured by your evaluation here today. I do not know what caused your chest pain but I do think it was understandably exacerbated by anxiety. Dr. Saul is a very good physician. Please follow-up with her to discuss your visit here today. Me belgica que se sienta mejor. Me tranquiliza roberto evaluaci?n de hoy. No s? qu? le caus? el dolor en el pecho, surya creo que, comprensiblemente, la ansiedad lo agrav?. La Dra. Saul es irena excelente m?dica. Por favor, vuelva a hablar con zora para hablar sobre roberto visita de hoy. Prescriptions: No Action tamoxifen 10 mg tablet 10 mg PO BID Follow Up/Referrals: Provider,Not a Local [Primary Care Provider, Family Practice] Stand Alone Forms: Gimmie Info Instructions
[2024-10-18 22:12] LABS: Hematocrit 41.4 % (33.0-51.0); Hemoglobin* 14.0 gm/dL (12.0-16.0); Immature Granulocytes Abs Auto 0.01 K/uL (0.00-0.30); Immature Granulocytes Pct Auto 0.2 %; Lymphocytes Absolute Auto 3.00 K/uL (0.90-2.90); Mean Corpuscular HGB Conc 34 gm/dL (32-36); Mean Corpuscular Hemoglobin 30 pg (26-34); Mean Corpuscular Volume 88 fL (80-100); RDW Coefficient of Variation % 13.0 % (11.5-15.5); Red Blood Count 4.69 m/uL (4.00-5.20); Slide Review Reflex No; White Blood Count* 6.25 K/uL (4.50-11.00)
[2024-10-18 22:13] LABS: Chloride* 104 mmol/L (96-114)
[2024-10-18 22:14] LABS: Albumin* 4.8 g/dL (3.3-5.0); Potassium* 3.8 mmol/L (3.6-5.1); Sodium* 138 mmol/L (135-149)
[2024-10-18 22:16] LABS: Blood Urea Nitrogen* 13 mg/dL (5-24); Creatinine* 0.5 mg/dL (0.5-1.5); Est. Creatinine Clearance* 98.84; Estimated Glomerular Filt Rate 116 ml/min
[2024-10-18 22:17] LABS: Alanine Aminotransferase* 24 U/L (4-35); Alkaline Phosphatase* 117 U/L (40-150); Anion Gap 9 mEq/L (7-15); Aspartate Amino Transferase* 39 U/L (12-35); Bilirubin Direct* 0.3 mg/dL (0.0-0.5); Bilirubin Total* 0.4 mg/dL (0.1-1.5); Calcium* 9.3 mg/dL (8.4-10.6); Carbon Dioxide* 25 mmol/L (20-32); Glucose* 125 mg/dL (60-115); Total Protein* 9.0 g/dL (6.0-8.3)
[2024-10-18 22:25] LABS: Troponin, Point-of-Care* 0.00 ng/ml (0.01-0.04)
[2024-10-18 22:41] LABS: NT Pro B Type NatriureticPept* 43 pg/mL (See Note)
[2024-10-18 22:49] LABS: D Dimer Quantitative* 0.34 ug/ml (0.00-0.50)
[2024-10-18 23:40] VITALS: BP 150/94; PULSE 80; RESP 16; TEMP 36.7; O2SAT 98
[2024-10-18 23:50] LABS: Troponin, Point-of-Care* 0.00 ng/ml (0.01-0.04)
== END 2024-10-19 00:02 | disposition home or self-care (01) ==
PROVIDERS: Emergency Provider Family Medicine
DX: R07.9 Chest pain, unspecified (principal); R41.9 Unspecified symptoms and signs involving cognitive functions and awareness
CPT/HCPCS: 36415; 80048; 80076; 83880; 84484; 85025; 85379; 85610; 86140; 99283; 99284; A9270